=== PATIENT | female | born 1940 | race Caucasian/White ===

== ENCOUNTER 2016-09-20 16:45 | Emergency (ER) | payer MEDICARE ==
[~2016-09-20] VITALS: Ht 160 cm; Wt 83.9 kg
[~2016-09-20 16:45] MED LIST: ACDPT PO; ALPR0.5T PO; ASPI-892 PO; CALC600T19 PO; CALC625T68 PO; CETI10TA20 PO; CITA20TA4 PO; COLE1TAB PO; DCS100C PO; DICY10CA59 PO; DICY20TA10 PO; FLUT16SP22; GLUC-96 PO; HYDR-3714 PO; LACT1CAP62 PO; MAGN250T7 PO; MAGN400C PO; MELA1TAB27 PO; MELO-195 PO; METAMUCIL0.52 G PO; METO25TA6 PO; MULT-974 PO; NF-TYLARTH PO; OMEG1CAP74 PO; OMEP10CA4 PO; OMEP20TA2 PO; PSEU120T16 PO; RIZA10TA24 PO; SIMV40TA4 PO; TR025C15 TOP; TRIA1TAB5 PO; UBID100C17 PO; VERA240C2 PO; VERA240T PO; VIT1TABL59 PO; VITA1CAP21 PO; [UNRECOGNIZED DRUG - OTHER] PO
--- OUTSIDE RECORDS SUMMARY | 2016-09-20 16:51 | XMS REPORT | Continuity of Care Document ---
Author Author [facility] Organization [facility] Address Unknown Phone Unavailable Allergies Active Description Code Type Severity Reaction Onset Reported/Identified Relationship to Patient Clinical Status Yes codeine [id number] Drug Allergy Unknown DIZZINESS 10/31/2014 Yes levofloxacin [id number] Drug Allergy Unknown TINGLY LIPS 10/31/2014 Yes ofloxacin [id number] Drug Allergy Unknown TINGLY LIPS 10/31/2014 Yes Sulfa (Sulfonamide Antibiotics) [id number] Drug Allergy Unknown NAUSEA 10/31/2014 Medications Problems Date Dx Coded Attending Type Code Diagnosis Diagnosed By 11/14/2014 VENITA SINGLETARY MD Ot 724.03 12/22/2014 VENITA SINGLETARY MD Ot 724.02 12/22/2014 VENITA SINGLETARY MD Ot V02.54 12/22/2014 VENITA SINGLETARY MD Ot V72.63 12/22/2014 VENITA SINGLETARY MD Ot V72.81 12/22/2014 VENITA SINGLETARY MD Ot V74.8 12/22/2014 VENITA SINGLETARY MD Ot 724.02 12/22/2014 VENITA SINGLETARY MD Ot V02.54 12/22/2014 VENITA SINGLETARY MD Ot V72.63 12/22/2014 VENITA SINGLETARY MD Ot V72.81 12/22/2014 VENITA SINGLETARY MD Ot V74.8 05/15/2015 VENITA SINGLETARY MD Ot 724.02 05/15/2015 VENITA SINGLETARY MD Ot V02.54 05/15/2015 VENITA SINGLETARY MD Ot V72.63 05/15/2015 VENITA SINGLETARY MD Ot V72.81 05/15/2015 VENITA SINGLETARY MD Ot V74.8 06/05/2015 KRYSTINA GUPTA APRN Ot J32.9 06/14/2015 KRYSTINA GUPTA APRN Ot J32.9 Procedures Results Encounters ACCT No. Visit Date/Time Discharge Status Pt. Type Provider Facility Loc./Unit Complaint [id number] 05/15/2015 16:45:00 2014 23:59:59 CLS Outpatient KRYSTINA GUPTA APRN [facility] RAD [id number] 11/13/2014 06:58:00 2014 10:19:00 DIS Outpatient VENITA SINGLETARY MD [facility] [id number] 10/31/2014 12:38:00 2014 23:59:59 CLS Outpatient VENITA SINGLETARY MD [facility] PREOP
--- NOTE | 2016-09-20 19:27 | ED Lower Extremity ---
General Chief Complaint: Lower Extremity Stated Complaint: L CALF PAIN Nursing Triage Note: pt had surgery with Radha on in [place]. Spinal cord stimulator was installed. Pt reports pain in left lateral calf starting last night. Pain with ambulation. Nursing Sepsis Screen: No Definite Risk History of Present Illness Time seen by provider: 17:50 Initial Comments Patient had surgery by Dr. Garcia on 09/18/16 with placement of spinal cord stimulator. She will be returning on 09/23/16 for programming of the stimulator. She pain along the lateral of her left lower leg that started last night. It bothers her more with walking than when she is sitting or lying. She is not on aspirin or any other blood thinners. Allergies and Home Medications Allergies Coded Allergies: Sulfa (Sulfonamide Antibiotics) (Unverified Allergy, Unknown, NAUSEA, 10/31) codeine (Unverified Allergy, Unknown, DIZZINESS, 10/31/14) levofloxacin (Unverified Allergy, Unknown, TINGLY LIPS, 10/31/14) ofloxacin (Unverified Allergy, Unknown, TINGLY LIPS, 10/31/14) Home Medications 1 CAP PO TID PRN PRN GAS (Reported) Acetaminophen/Diphenhydramine 1 Ea Tab 1 TAB PO DAILY PRN PRN PAIN (Reported) Aspirin 81 Mg Tabec 81 MG PO DAILY@1700 (Reported) Calcium Carbonate 600 Mg Tablet 600 MG PO BID (Reported) Cetirizine HCl 10 Mg Tablet 10 MG PO DAILY (Reported) Citalopram Hydrobromide 20 Mg Tablet 20 MG PO DAILY (Reported) Colestipol Hcl 1 Gm Tablet 1 GM PO BID (Reported) Dicyclomine Hcl 20 Mg Tablet 20 MG PO Q6H PRN PRN STOMACH UPSET (Reported) Docusate Sodium 100 Mg Cap 100 MG PO BID PRN PRN CONSTIPATION (Reported) Fluticasone Propionate 16 Gm Naspr 2 SPRAYS NA DAILY (Reported) Glucosa Murray 2KCL/Chondroitin Murray 1 Each Tablet 1 TAB PO MON, WED, FRI (Reported) Hydrocodone Bit/Acetaminophen 1 Tab Tablet 1 TAB PO Q4H PRN PRN PAIN (Reported) Lactobacillus Acidophilus 1 Each Capsule 1 CAP PO DAILY (Reported) Magnesium Oxide 250 Mg Tablet 250 MG PO BID (Reported) Melatonin/Pyridoxine HCl (B6) 1 Each Tablet 3 MG PO HS (Reported) Meloxicam 15 Mg Tablet 15 MG PO DAILY (Reported) Metoprolol Tartrate 25 Mg Tablet 25 MG PO BID (Reported) Multivitamin 1 Each Tablet 1 TAB PO MON, WED, FRI (Reported) Grant-3/Dha/Epa/Fish Oil 1,000 Mg Capsule 1,000 MG PO DAILY (Reported) Omeprazole 20 Mg Tablet.dr 20 MG PO DAILY (Reported) Pseudoephedrine Hcl 120 Mg Tablet.sa 120 MG PO DAILY (Reported) Psyllium Husk 0.52 G Capsule 0.52 G PO BID (Reported) Rizatriptan Benzoate 10 Mg Tablet 10 MG PO UD PRN PRN MIGRAINE (Reported) PRN MIGRAINE, TAKE ONE ON ONSET OF MIGRAINE, DECEMBER REPEART EVERY 2 HOURS, MAX DOSE OF 3 TABS IN 24 HOURS Simvastatin 40 Mg Tablet 40 MG PO HS (Reported) Triamcinolone Acet 15 Gm Cr 0 TOP BID (Reported) APPLY SPRARINGLY TO AFFECTED AREA(S) Triamterene/Hydrochlorothiazid 1 Each Tablet 0.5 TAB PO DAILY (Reported) Ubidecarenone 100 Mg Capsule 100 MG PO HS (Reported) Verapamil Hcl 240 Mg Cap24h.pel 240 MG PO DAILY@1700 (Reported) Vitamin B Complex 1 Cap Capsule 1 CAP PO DAILY (Reported) Constitutional: no symptoms reported see HPI EENTM: no symptoms reported see HPI Respiratory: no symptoms reported see HPI Cardiovascular: no symptoms reported see HPI Gastrointestinal: no symptoms reported see HPI Genitourinary: no symptoms reported see HPI Musculoskeletal: see HPI muscle pain (left lower extremity) Skin: no symptoms reported see HPI Psychiatric/Neurological: No Symptoms Reported See HPI All Other Systems Reviewed Negative Unless Noted: Yes Past Hhmjibj-Xftgjd-Buwsnm Hx Patient Social History Alcohol Use: Rarely Uses Recreational Drug Use: No Smoking Status: Former Smoker Type Used: Cigarettes Recent Foreign Travel: No Contact w/Someone Who Travel: No Recent Infectious Disease Expo: No Recent Hopitalizations: Yes (BACK SURGERY 09/2016) Immunizations Up To Date Date of Pneumonia Vaccine: Aug 03, 2012 Date of Influenza Vaccine: May 07, 2016 Seasonal Allergies Seasonal Allergies: Yes Surgeries HX Surgeries: Yes (HIATAL HERNIA, POSTERIOR REPAIR, LIPOMAS REMOVED BACK) Respiratory Hx Respiratory Disorders: No Cardiovascular Hx Cardiac Disorders: Yes Cardiac Disorders: Hypertension Neurological Hx Neurological Disorders: No Genitourinary Hx Genitourinary Disorders: No Gastrointestinal Hx Gastrointestinal Disorders: Yes Gastrointestinal Disorders: Gastroesophageal Reflux Musculoskeletal Hx Musculoskeletal Disorders: Yes Musculoskeletal Disorders: Arthritis, Chronic Back Pain Endocrine Hx Endocrine Disorders: No HEENT HX ENT Disorders: Yes (CATARACTS REMOVED, READING GLASSES) Cancer Hx Cancer: No Psychosocial Hx Psychiatric Problems: Yes Behavioral Health Disorders: Depression Integumentary HX Skin/Integumentary Disorder: Yes (COUPLE RED SPOTS ON LEFT ARM, CURRENTLY PUTTING CREAM ON THEM) Blood Transfusions Hx Blood Disorders: No Reviewed Nursing Assessment Reviewed/Agree w Nursing PMH: Yes Family Medical History Family Medial History: Arthritis 19 MOTHER Cardiovascular disease 19 FATHER 19 MOTHER Completed stroke 19 MOTHER Glaucoma 19 MOTHER Hypertension 19 FATHER Respiratory disorder 19 FATHER (LUNG CANCER) G8 BROTHER No Family History of: AIDS Abdominal aortic aneurysm Alcoholism Alzheimer's disease Asthma Cancer of mouth Cataracts Colon cancer Dementia Diabetes mellitus Drug abuse Kidney disease Myocardial infarction Parkinson's disease Prostate cancer Psychosocial problem Seizure disorder Severe allergy Thyroid disease Tuberculosis Physical Exam Vital Signs Vital Sign - Last 12Hours 09/20/16 2 17:08 19:36 Temp 99.9 Pulse 62 Resp 16 B/P 138/62 Pulse Ox 99 Capillary Refill : Less Than 3 Seconds General Appearance: WD/WN no apparent distress Neck: non-tender full range of motion supple normal inspection Cardiovascular: normal peripheral pulses (pedal pulses 2+ and symmetric) regular rate, rhythm no murmur Respiratory: chest non-tender lungs clear normal breath sounds Legs: right leg non-tender, right leg normal inspection, right leg normal range of motion, right leg no evidence of injury, left leg bone tenderness, left leg soft tissue tenderness (lateral calf), left leg swelling Neurologic/Tendon: normal sensation normal motor functions normal tendon functions other (negative Homans sign bilaterally) Neurologic/Psychiatric: no motor/sensory deficits alert normal mood/affect oriented x 3 Skin: normal color warm/dry other (2 incisions back with dressings intact, no erythema to surrounding skin no active drainage/bleeding noted.) Lymphatic: no adenopathy Comments Patient ambulates with a normal heel to toe gait, she can walk on her toes and heels. No reproduction of left calf pain with ambulation today. Progress/Results/Core Measures Results/Orders My Orders Orders-LUTHER VILLASENOR Venous Lower Ext Lt (09/20/16 17:47) Vital Signs/I&O Vital Sign - Last 12Hours 09/20/16 09/20/16 17:08 19:36 Temp 99.9 98.9 Pulse 62 64 Resp 16 16 B/P 138/62 Pulse Ox 99 Blood Pressure Mean: 87 Diagnostic Imaging Diagonstic Imaging: Ultrasound Plain Films/CT/US/NM/MRI: leg Comments NAME: JONATHAN HARVEY MED REC#: [id number] PHYSICIAN: LUTHER VILLASENOR CC: DAYO DREW; LUTHER VILLASENOR Page 1 of 1 RADIOLOGY REPORT VIA [facility]. [place], [place] CC: DAYO DREW; LUTHER VILLASENOR Page 1 of 1 RADIOLOGY REPORT NAME: JONATHAN HARVEY MED REC#: [id number] PT STATUS: DEP ER : 1940 PHYSICIAN: LUTHER VILLASENOR ADMIT DATE: 09/20/16/ER Signed Date of Exam: 09/20/16 US VENOUS LOWER EXT LT INDICATION: Left calf pain. COMPARISON: None. TECHNIQUE: Duplex, sales-scale and color-flow imaging of the left lower extremity venous system was performed. FINDINGS: The common femoral vein, superficial femoral vein, profunda femoris, and popliteal veins are normal. These vessels show normal compressibility, color flow, and doppler augmentation. The deep calf veins, although not very well seen, demonstrate no distinct intraluminal thrombus. IMPRESSION: Negative venous Doppler of the left lower extremity. Dictated by: Dictated on workstation # [id number] Dict: 09/20/161922 Trans: 09/20/162202 [facility] [id number] Interpreted by: DAYO DREW Electronically signed by:DAYO DREW 09/20/162205 Reviewed: Reviewed by Me, Reviewed/Discussed Departure Impression Impression: Primary Impression: Leg pain, anterior Qualified Code: M79.605 - Pain in left leg Disposition: 01 HOME, SELF-CARE Condition: Stable Departure-Patient Inst. Decision time for Depature: 19:00 Referrals: SUNI QUIROGA MD (PCP/Family) Primary Care Physician Patient Instructions: Contusion (DC) Add. Discharge Instructions: All discharge instructions reviewed with patient and/or family. Voiced understanding. Gentle range of motion to left lower extremity Notify Dr. Garcia's office on Thursday, see about appointment for Thursday when spinal stimulator is being programmed. Return to emergency department for increased symptoms, changes in status or other concerns. Copy Copies To 1: VENITA GARCIA MD, AMY ARNP Sep 20, 2016 19:27
[2016-09-20 19:36] VITALS: BP 132/58
== END 2016-09-20 19:34 | disposition home or self-care (01) ==
LOC: EDUNIT# 16:45 → ER 16:47
DX: I10 Essential (primary) hypertension (principal); M79.662 Pain in left lower leg; Z79.82 Long term (current) use of aspirin; Z79.899 Other long term (current) drug therapy; Z87.891 Personal history of nicotine dependence; Z96.9 Presence of functional implant, unspecified; Z98.890 Other specified postprocedural states
CPT/HCPCS: 99283